=== PATIENT | female | born 1960 | race African-American/Black ===

== ENCOUNTER 2017-02-19 09:21 | Emergency (ER) | payer OTHER ==
[~2017-02-19] VITALS: Ht 160 cm; Wt 56.7 kg
[2017-02-19] MEDS ORDERED: FUROSEMIDE40 MG ORAL (09:38)
[2017-02-19] MEDS ORDERED: HYDROCHLOROTHIA25 MG ORAL (09:38)
[2017-02-19] MEDS ORDERED: KLONOPIN0.5 MG ORAL (09:38)
[2017-02-19] MEDS ORDERED: SOMA350 MG PO (09:38)
[2017-02-19] MEDS ORDERED: PHOSPHA 250 NE250 M1 ORAL (09:38)
[2017-02-19] MEDS ORDERED: BENAZEPRIL HCL20 MG ORAL (09:38)
[2017-02-19] MEDS ORDERED: CATAPRES0.1 MG ORAL (09:38)
[2017-02-19 09:44] VITALS: BP 123/84
[2017-02-19 10:59] LABS: BASOPHILS % (AUTO) 1.9 % (0.0-2.0); EOSINOPHILS % (AUTO) 7.7 % (0.0-3.0); LYMPHOCYTES % (AUTO) 37.4 % (20.0-45.0); MEAN CORPUSCULAR HEMOGLOBIN 30.3 PG (27.0-31.0); MEAN CORPUSCULAR VOLUME 95 FL (80-99); MEAN PLATELET VOLUME 9.1 FL (6.5-10.1); MONOCYTES % (AUTO) 9.5 % (1.0-10.0); NEUTROPHILS % (AUTO) 43.4 % (45.0-75.0); PLATELET COUNT 137 K/UL (150-450); RED BLOOD COUNT 2.79 M/UL (4.20-5.40); RED CELL DISTRIBUTION WIDTH 16.2 % (11.6-14.8); WHITE BLOOD COUNT 7.1 K/UL (4.8-10.8)
[2017-02-19 11:07] LABS: PROTHROMBIN TIME 10.7 SEC (9.30-11.50)
[2017-02-19 11:14] LABS: CALCIUM 8.3 mg/dL (8.6-10.2); CREATININE 9.1 mg/dL (0.5-0.9); GLOMERULAR FILTRATION RATE 5.5 mL/min (>60); POTASSIUM 5.1 mEQ/L (3.4-4.9); TOTAL PROTEIN 7.2 g/dL (6.6-8.7)
[2017-02-19 11:21] VITALS: BP 105/68
[2017-02-19] MEDS ORDERED: ANUSOL-HC25 MG RECTAL (11:33)
[2017-02-19] MEDS ORDERED: FLEET ENEMA133 ML RECTAL (11:33)
[2017-02-19 11:37] VITALS: BP 105/68
--- NOTE | 2017-02-19 12:44 | Diagnostic Imaging Report ---
Indication: Abdominal pain and distention Technique: Supine view of the abdomen Comparison: none Findings: There is a paucity of bowel gas. There is evidence of considerable stool throughout the colon. Small bowel loops are not visualized. No unusual masses or calcifications. Impression: Findings as noted. No definite acute process
--- NOTE | 2017-02-19 14:39 | Emergency Room Report ---
History of Present Illness General Chief Complaint: General Complaint Source: Patient Present Illness HPI 56-year-old female presents ED complaining of abdominal distention and blood in stool x3 days. Patient states she has streaks of blood in her stool. Patient states she has history of constipation. Is currently taking lactulose and other stool softeners. Patient notes history of liver disease and has ascites. Patient is some abdominal distention. Patient also has history of renal disease and gets dialysis Sunday. Denies chest pain or shortness of breath. Denies any blood thinners. No other aggravating relieving factors. Denies any other associated symptoms Allergies: Coded Allergies: No Known Allergies (Unverified , 02/19/17) Patient History Past Medical History: HTN, renal disease, dialysis, other - ascites Past Surgical History: none Pertinent Family History: none Social History: Denies: alcohol use, drug use, smoking Now: No Immunizations: UTD Reviewed Nursing Documentation: PMH: Agreed, PSxH: Agreed Nursing Documentation-PMH Past Medical History: No History, Except For Hx Hypertension: Yes Hx Pacemaker: No - RA Hx Gastrointestinal Problems: Yes - ASCITES Hx Dialysis: Yes - M W F Hx Seizures: Yes Review of Systems All Other Systems: negative except mentioned in HPI Physical Exam Vital Signs Date Time Temp Pulse Resp B/P Pulse Ox O2 Delivery O2 Flow Rate FiO2 02/19/17 09:30 98.1 78 20 143/87 98 Room Air Sp02 EP Interpretation: reviewed, normal General Appearance: no apparent distress, alert, GCS 15, non-toxic Head: normocephalic Eyes: bilateral eye PERRL, bilateral eye normal inspection ENT: normal ENT inspection Neck: normal inspection Respiratory: chest non-tender, lungs clear, normal breath sounds, speaking full sentences Cardiovascular #1: regular rate, rhythm, no edema Gastrointestinal: normal bowel sounds, non tender, soft, no guarding, no rebound, distended Rectal: other - hemorrhoids Genitourinary: no CVA tenderness Musculoskeletal: normal inspection Neurologic: alert, oriented x3, responsive, motor strength/tone normal, sensory intact, speech normal Psychiatric: judgement/insight normal, memory normal, mood/affect normal, no suicidal/homicidal ideation Skin: normal color Lymphatic: normal inspection Medical Decision Making Diagnostic Impression: Primary Impression: Constipation Qualified Codes: K59.00 - Constipation, unspecified Additional Impression: ESRD (end stage renal disease) on dialysis ER Course Hospital Course 56-year-old female presents to ED with abdominal distention, blood in stool Differential diagnosis includes-appendicitis, cholecystitis, small bowel obstruction, gastritis, Clinical course Patient placed on stretcher. After initial history and physical I ordered labs , and KUB Labs - no leukocytosis, BUN/Cr elevated, Hb/HCt stable KUB - copious stool noted I feel this is a highly complex case requiring extensive working including EKG/ Rhythm strip, Xray/CT/US, Blood/urine lab work, repeat exams while in ED, and administration of strong opiates/narcotics for pain control, admission to hospital or close patient follow up. Diagnosis - constipation, ESRD on dialysis Stable and discharged to home with Rx enema, anusol suppository. Continue lactulose and colace. instructed on high-fiber diet. Followup with PMD. Return to ED if symptoms recur or worsen Labs Test 02/19/17 10:35 White Blood Count 7.1 K/UL (4.8-10.8) Red Blood Count 2.79 M/UL (4.20-5.40) Hemoglobin 8.4 G/DL (12.0-16.0) Hematocrit 26.4 % (37.0-47.0) Mean Corpuscular Volume 95 FL (80-99) Mean Corpuscular Hemoglobin 30.3 PG (27.0-31.0) Mean Corpuscular Hemoglobin Concent 32.0 G/DL (32.0-36.0) Red Cell Distribution Width 16.2 % (11.6-14.8) Platelet Count 137 K/UL (150-450) Mean Platelet Volume 9.1 FL (6.5-10.1) Neutrophils (%) (Auto) 43.4 % (45.0-75.0) Lymphocytes (%) (Auto) 37.4 % (20.0-45.0) Monocytes (%) (Auto) 9.5 % (1.0-10.0) Eosinophils (%) (Auto) 7.7 % (0.0-3.0) Basophils (%) (Auto) 1.9 % (0.0-2.0) Prothrombin Time 10.7 SEC (9.30-11.50) Prothromb Time International Ratio 1.0 (0.9-1.1) Activated Partial Thromboplast Time 29 SEC (23-33) Sodium Level 131 mEQ/L (135-145) Potassium Level 5.1 mEQ/L (3.4-4.9) Chloride Level 89 mEQ/L (98-107) Carbon Dioxide Level 25 mEQ/L (20-30) Anion Gap 17 (5-15) Blood Urea Nitrogen 54 mg/dL (7-23) Creatinine 9.1 mg/dL (0.5-0.9) Estimat Glomerular Filtration Rate 5.5 mL/min (>60) Glucose Level 90 mg/dL (74-106) Calcium Level 8.3 mg/dL (8.6-10.2) Total Bilirubin 0.4 mg/dL (0.0-1.2) Aspartate Amino Transf (AST/SGOT) 15 U/L (5-40) Alanine Aminotransferase (ALT/SGPT) 12 U/L (3-33) Alkaline Phosphatase 73 U/L (35-104) Total Protein 7.2 g/dL (6.6-8.7) Albumin 3.6 g/dL (3.5-5.2) Globulin 3.6 g/dL Albumin/Globulin Ratio 1.0 (1.0-2.7) Other X-Ray Diagnostic Results Other X-Ray Diagnostic Results : X-Ray ordered: KUB # of Views/Limited Vs Complete: 1 View Indication: Pain EP Interpretation: Yes Interpretation: nonspecific bowel gas, no sbo, other - constipation Impression: Other - constipation Interpreting ER Provider: Electronically signed by Basil Colunga MD Last Vital Signs Date Time Temp Pulse Resp B/P Pulse Ox O2 Delivery O2 Flow Rate FiO2 02/19/17 11:37 98.1 75 19 105/68 94 Room Air 80 Status: improved Disposition: HOME, SELF-CARE Condition: Stable Scripts Na Phos,M-B/Na Phos,Di-Ba* (FLEET ENEMA*) 133 Ml Enema 133 ML RECTAL DAILY, #133 ML 0 Refills Prov: BASIL COLUNGA M.D. 02/19/17 Hydrocortisone Acetate* (ANUSOL-HC*) 25 Mg Supp.rect 1 SUPP RECTAL TWICE A DAY, #10 SUPP Prov: BASIL COLUNGA M.D. 7/24/17 Patient Instructions: Constipation, Adult, [id number] BASIL COLUNGA M.D. Feb 19, 2017 14:39
== END 2017-02-19 11:37 | disposition home or self-care (01) ==
LOC: EMR 10:24
DX: K59.00 Constipation, unspecified (principal); I12.0 Hypertensive chronic kidney disease with stage 5 chronic kidney disease or end stage renal disease; N18.6 End stage renal disease; Z99.2 Dependence on renal dialysis
CPT/HCPCS: 36415; 74000; 80053; 85025; 85610; 85730; 99284